=== PATIENT | female | born 1965 | race Caucasian/White ===

== ENCOUNTER 2022-10-02 09:29 | Outpatient (CLI) | payer BC, SELFPAY ==
--- NOTE | 2022-10-02 | XR_ITS ---
WS: [id number] EXAMINATION: XR cervical spine fl/ex [id number] Cervical spine 3 views REASON FOR EXAM: CERVICALGIA COMPARISON: 12/21/2018 FINDINGS: There is no sign of acute fracture or subluxation. Vertebral body heights are maintained. Disc space narrowing with small osteophytes and facet joint narrowing with sclerosis at C5-C6 and C6-C7. Remaining disc spaces are maintained. The posterior elements and odontoid process are intact. No prevertebral soft tissue swelling. IMPRESSION: No acute osseous abnormality.
== END 2022-10-02 09:30 | disposition home or self-care (01) ==
PROVIDERS: PCP Nurse Practitioner Family; Visit Provider Nurse Practitioner
DX: M54.2 Cervicalgia (principal)
CPT/HCPCS: 72040

== ENCOUNTER → 2024-06-08 10:05 | Outpatient (BNVA) | payer BC, SELFPAY | PROVIDERS: PCP Registered Nurse; Visit Provider Specialist | DX: S83.207A Unspecified tear of unspecified meniscus, current injury, left knee, initial encounter (principal); S80.02XA Contusion of left knee, initial encounter; W19.XXXA Unspecified fall, initial encounter | CPT/HCPCS: 73560; 73565 ==

== ENCOUNTER 2024-07-11 10:10 | Outpatient (CLI) | payer BC, SELFPAY ==
--- NOTE | 2024-07-11 10:15 | MR_ITS ---
WS: [id number] MRI LEFT KNEE HISTORY: Injury several months ago. Patellar pain. COMPARISON: Radiograph 06/08/2024 Anterior cruciate ligament: ACL is not identified. There is motion artifact which is causing some limitation but a normal-appearing ACL along its normal course is not identified. Posterior cruciate ligament: Intact. Medial collateral ligament: Intact. Posterior lateral corner structures: Intact. Medial menisci: Abnormal signal throughout the meniscal root consistent with a complex tear. Anterior horn is normal. Lateral meniscus: Intact. Normal signal, size and shape. Extensor mechanism: Distal quadriceps tendon and patellar tendons are intact. Fluid and soft tissue: No joint effusion. Tiny Wolfe's cyst. Osseous and articular structures: Patellofemoral compartment: Normal. There is edema in the prepatellar fat pad. No bursal distention. Medial compartment: Subchondral cystic changes along the posterior medial tibial plateau. Mild narrowing of the medial compartment with fissuring of the cartilage. Lateral compartment: Mild narrowing. 10 mm fluid collection near the fibular head may be a small ganglion. MR/MR knee LT wo con* [id number] IMPRESSION: 1. Complete ACL tear. 2. Complex tear meniscal root posterior horn medial meniscus. 3. Subchondral cystic changes along the posterior medial tibial plateau. 4. Normal patella. 5. Very small Wolfe's cyst. 6. Suspect small ganglion cyst at the fibular head.
== END 2024-07-11 10:11 | disposition home or self-care (01) ==
LOC: RAD 10:12
PROVIDERS: PCP Registered Nurse; Visit Provider Specialist
DX: S80.02XA Contusion of left knee, initial encounter (principal); M71.22 Synovial cyst of popliteal space [Baker], left knee; S83.32XA Tear of articular cartilage of left knee, current, initial encounter; X58.XXXA Exposure to other specified factors, initial encounter
CPT/HCPCS: 73721

== ENCOUNTER → 2024-09-14 08:56 | Outpatient (BNVA) | payer BC, SELFPAY | PROVIDERS: PCP Registered Nurse; Visit Provider Nurse Practitioner | DX: M19.012 Primary osteoarthritis, left shoulder (principal); M67.912 Unspecified disorder of synovium and tendon, left shoulder; G89.29 Other chronic pain | CPT/HCPCS: 73030 ==

== ENCOUNTER 2024-09-29 09:21 | Outpatient (CLI) | payer BC, SELFPAY ==
--- NOTE | 2024-09-29 09:30 | MR_ITS ---
WS: [id number] MRI LEFT SHOULDER NONCONTRAST TECHNIQUE: Sagittal T2, coronal T1, T2 and proton density imaging. Axial gradient PDE imaging. CLINICAL INFORMATION: left shoulder pain FINDINGS: Moderate degenerative arthritis AC joint with a small amount of fluid and edema. Moderate downsloping acromion with impingement on the rotator cuff. Tendinopathy supraspinatus and infraspinatus. Normal teres minor. Normal subscapularis tendon. Biceps tendon appears intact within the bicipital groove. Intra-articular biceps tendon appears intact. Normal bone marrow signal in the humeral head and glenoid. Moderate degenerative narrowing glenohumeral articulation. Biceps labral anchor appears intact. MR/MR shoulder LT wo con* [id number] IMPRESSION: 1. Moderate degenerative arthritis AC joint with a small amount of fluid and edema. Moderate downsloping acromion with impingement on the rotator cuff. 2. Tendinopathy supraspinatus and infraspinatus. 3. Normal biceps tendon in the bicipital groove. 4. Intra-articular biceps tendon appears intact. 5. Moderate degenerative narrowing glenohumeral articulation.
== END 2024-09-29 09:22 | disposition home or self-care (01) ==
LOC: RAD 09:22
PROVIDERS: PCP Registered Nurse; Visit Provider Nurse Practitioner
DX: M19.012 Primary osteoarthritis, left shoulder (principal); M25.812 Other specified joint disorders, left shoulder
CPT/HCPCS: 73221

== ENCOUNTER 2025-01-09 08:46 | Outpatient (CLI) | payer BC, SELFPAY ==
--- NOTE | 2025-01-09 08:54 | MR_ITS ---
WS: [email or web address] MRI BRAIN WITHOUT CONTRAST HISTORY: NEW PERSISTENT DAILY HEADACHE COMPARISON: None available. TECHNIQUE: Diffusion imaging, multiplanar T1, T2 and FLAIR imaging obtained. No evidence for acute infarct or hemorrhage. Arthur-white matter differentiation is normal. No significant volume loss or prior infarct. There are a few subcortical T2 and FLAIR signal hyperintensities in the frontal lobes. No hemorrhage. Normal hippocampal formations. Ventricles and extra-axial spaces are normal. No inferior displacement of cerebellar tonsils. The sella turcica and pituitary gland are unremarkable. Dural venous sinuses and [place] demonstrate no abnormality on this unenhanced studies. Paranasal sinuses: Clear. Mastoid air cells: Normal. Calvarium and scalp: Intact. MR/MR head wo con* [id number] IMPRESSION: 1. Normal diffusion imaging. 2. There are a few T2 and FLAIR scattered subcortical white matter foci in the frontal lobes. These can be seen with migraines, hypertension, diabetes, smoki ng and small vessel disease. 3. No significant atrophy.
== END 2025-01-09 08:47 | disposition home or self-care (01) ==
LOC: RAD 08:47
PROVIDERS: PCP Registered Nurse; Visit Provider Registered Nurse
DX: G44.52 New daily persistent headache (NDPH) (principal); E88.89 Other specified metabolic disorders
CPT/HCPCS: 36415; 70551; 82607; 82746

== ENCOUNTER 2025-01-17 09:12 | Outpatient (CLI) | payer BC, SELFPAY ==
--- NOTE | 2025-01-17 09:30 | MR_ITS ---
WS: [email or web address] MRI CERVICAL SPINE NONCONTRAST TECHNIQUE: Sagittal T1, T2 and STIR imaging. Axial T2, gradient, and fiesta imaging. CLINICAL INFORMATION: M54.2 - Cervicalgia COMPARISON: None. FINDINGS: Straightening of the normal cervical lordosis. Cord signal is normal. Mild disc bulging C4-C5 C5-C6 and C6-C7. C2-C3: Mild LEFT bony foraminal narrowing. Moderate facet arthropathy. C3-C4: Mild LEFT bony foraminal narrowing. Spinal canal is patent. C4-C5: Disc osteophyte complex with mild central canal stenosis. Mild to moderate RIGHT bony foraminal narrowing. Mild facet arthropathy. C5-C6: Disc osteophyte complex with mild central canal stenosis. Moderate LEFT greater than RIGHT bony foraminal narrowing. Uncovertebral joint hypertrophy. Mild facet arthropathy. C6-C7: Disc osteophyte complex with mild central canal stenosis and slight indentation on the cervical cord. Moderate LEFT and mild RIGHT foraminal narrowing. C7-T1: Mild LEFT bony foraminal narrowing. Spinal canal is patent. Visualized brain stem structures: Normal. Prevertebral soft tissues: Normal. LEFT thyroid nodule measuring 12 x 9 mm this could be followed up with ultrasound on an elective basis. MR/MR cervical spin wo con* [id number] IMPRESSION: 1. Straightening of the normal cervical lordosis. Disc bulging worse at C4-C6. 2. Cord signal is normal. 3. Mild central canal stenosis C4-C5 C5-C6 and C6-C7 worse at C5-C6 and C6-C7 with slight indentation of the cervical cord with small central protrusions. 4. Moderate LEFT greater than RIGHT C5-C6 and LEFT C6-7 bony foraminal narrowi ng. 5. Mild to moderate RIGHT C4-5 foraminal narrowing
== END 2025-01-17 09:13 | disposition home or self-care (01) ==
LOC: RAD 09:13
PROVIDERS: PCP Registered Nurse; Visit Provider Specialist
DX: G44.009 Cluster headache syndrome, unspecified, not intractable (principal); M40.202 Unspecified kyphosis, cervical region; M48.02 Spinal stenosis, cervical region; M47.812 Spondylosis without myelopathy or radiculopathy, cervical region; M50.223 Other cervical disc displacement at C6-C7 level; M25.78 Osteophyte, vertebrae
CPT/HCPCS: 72141